=== PATIENT | male | born 1985 | race Caucasian/White ===

== ENCOUNTER 2020-08-18 10:13 | Outpatient (NON) | payer OTHER, SELFPAY ==
[2020-08-19 00:37] LABS: SARS-CoV-2 RNA PCR Negative
== END 2020-08-18 10:14 ==
LOC: ANHCOVIDDT 10:13
PROVIDERS: PCP Internal Medicine; Visit Provider Internal Medicine
DX: Z20.822 Contact with and (suspected) exposure to COVID-19 (principal); B34.9 Viral infection, unspecified
CPT/HCPCS: C9803; U0003; U0005

== ENCOUNTER → 2020-08-19 11:59 | Outpatient (CLI) | payer OTHER, SELFPAY ==
--- NOTE | ~2020-08-19 | XR_ITS ---
XR chest 2V DATE: 08/19/2020 12:08 INDICATION: Cough TECHNIQUE: 2 views COMPARISON: None FINDINGS: Normal heart size. No hilar or mediastinal enlargement. No pulmonary infiltrate or consolidation, pleural effusion or pulmonary vascular congestion or pneumo thorax. IMPRESSION: No active cardiopulmonary disease Reviewed, dictated and finalized at location A. [employer]
== END ==
PROVIDERS: PCP Internal Medicine; Visit Provider Physician Assistant
DX: R05 Cough (principal)
CPT/HCPCS: 71046